=== PATIENT | male | born 1945 | race Caucasian/White ===

== ENCOUNTER 2019-12-06 14:51 | Emergency (ER) | payer SELFPAY ==
--- NOTE | 2019-12-06 15:04 | NUR ---
PT CALLED FROM WAITING ROOM, NO RESPONSE.
--- NOTE | 2019-12-06 15:15 | NUR ---
PT LEFT WITHOUT BEING SCENE.
== END 2019-12-06 15:04 | disposition left against medical advice (07) ==
LOC: MED 14:51
DX: M25.539 Pain in unspecified wrist (principal); Z53.21 Procedure and treatment not carried out due to patient leaving prior to being seen by health care provider